=== PATIENT | female | born 1955 | race Caucasian/White ===

== ENCOUNTER 2023-11-16 10:43 | Outpatient (AMB) | payer MEDICARE, OTHER, SELFPAY ==
--- NOTE | 2023-11-16 10:46 | MHC.OFFVIS ---
Vital Signs 11/16/23 10:48 Height 5 ft 11 in Weight 194 lb BMI 27.1 BP 134/72 Blood Pressure Location Lt brachial Position Sitting Respiration 15 Pulse 73 Pulse Source Pulse Oximeter Pulse Oximetry (%) 96 Oxygen Delivery Method Room Air Intake Visit Reasons: Lumbar Radiculitis Allergies cillins Allergy (Severe, Uncoded 11/16/23 10:50) Anaphylaxis Medication List - Last Reconciled 11/16/23 by Echo Gates LPN meloxicam 15 mg PO DAILY omeprazole 10 mg PO BID oxycodone 5 mg PO BID PRN spironolactone 100 mg PO BID HPI HPI Lumbar Radiculitis: Details: 68-year-old female who presents today to the office for lumbar radiculitis. The patient has a longstanding history of sacroiliac joint and dermatomyositis. She states that she was diagnosed with lupus at the age of 13. She had an extensive pelvis surgery in the past. She had no back surgery in the past. She states that she fell out of the [place] and landed on a stump on her back and had loss of consciousness at the age of 8. She reports persistent burning sensations in the crotch area, down both legs, and in feet about two years ago. The burning sensations are more localized in the tailbone and rectal area. She reports pain with movements, walking, climbing, and bending down. The pain is worse at night. She has difficulty sleeping at night. She has a history of sacroiliac joint injections, which provided temporary relief. She is reluctant to take gabapentin or similar medications. She deferred surgical options. Most of her family members are in [facility]. Review of Systems Const All systems reviewed & are unremarkable except as noted in HPI and below Physical Exam Vital Signs: Last Vital Signs Pulse 73 11/16/23 10:48 Resp 15 11/16/23 10:48 BP 134/72 11/16/23 10:48 Pulse Ox 96 11/16/23 10:48 Oxygen Delivery Method Room Air 11/16/23 10:48 BMI result Body Mass Index 27.1 General: Appears afebrile. Alert and oriented. Mood and affect appropriate. Follows and participates in conversation appropriately. Respiratory effort is unlabored. Able to transition from sit to stand unassisted. Ambulates with bilaterally normal heel strike and toe off. Pain and tenderness overlying SI joints. Results Reviewed Results Reviewed: No imaging is available for review. Assessment & Plan Assessment & Plan (1) Lumbar radiculopathy: Code(s): M54.16 - Radiculopathy, lumbar region Category: Medical (2) Pelvic pain in female: Code(s): R10.2 - Pelvic and perineal pain Category: Medical Plan Discussed spinal cord stimulation vs. dorsal root ganglion stimulation as possible treatment options for her low back pain associated with lumbar radiculitis, lower extremity burning and pelvic pain following previous pelvic surgery. Will place a referral for psychology clearance. Once we have received psychology clearance, we will plan for trial of SCS as a next step. The patient will receive a call from [facility] for the psychology assessment. Scribed for Dr. Lane by Farhad Chapin, medical transcription radiology, on 11/16/2023. I, Dr. Lane, have personally reviewed and agree with the information entered by the scribe. Coding Level of Care Code New Pt Level 4 (60653) Diagnoses Lumbar radiculopathy M54.16 Pelvic pain in female R10.2
[2023-11-16 10:48] VITALS: BP 134/72; PULSE 73; RESP 15; O2SAT 96; BMI 27.1
== END 2023-11-16 11:49 | disposition home or self-care (01) ==
PROVIDERS: PCP Family Medicine; Visit Provider Internal Medicine
DX: M54.16 Radiculopathy, lumbar region (principal); R10.2 Pelvic and perineal pain
CPT/HCPCS: 99204

== ENCOUNTER → 2023-11-16 10:43 | Outpatient (BNVA) | payer MEDICARE, OTHER, SELFPAY | PROVIDERS: PCP Family Medicine; Visit Provider Internal Medicine | DX: M54.16 Radiculopathy, lumbar region (principal); R10.2 Pelvic and perineal pain | CPT/HCPCS: 99202 ==